=== PATIENT | male | born 1975 | race Caucasian/White ===

== ENCOUNTER 2017-09-19 18:35 | Emergency (ER) | payer SELFPAY ==
[2017-09-19 19:21] VITALS: BP 130/84; PULSE 82; RESP 18; TEMP 97; O2SAT 98
--- NOTE | 2017-09-19 19:35 | RADRPT ---
EXAM DATE/TIME: 09/19/2017 19:15 [place] COMPARISON: No previous studies available for comparison. INDICATIONS : Right shoulder pain, from fall on street. MEDICAL HISTORY : None. SURGICAL HISTORY : None. ENCOUNTER: Initial ACUITY: 1 day PAIN SCORE: 0/10 LOCATION: Right shoulder FINDINGS: 4 views of the right shoulder reveal an acromioclavicular separation. The distal clavicle is cephalad relative to the articulation with the acromion. There is widening of the coracoclavicular distance w hich measures 4 cm. No discrete fracture observed. CONCLUSION: 1. Acromio clavicular separation. Baltazar Johnston Jr., MD on September 19, 2017 at 19:32 Board Certified Radiologist. This report was verified electronically.
[2017-09-19] MEDS ORDERED: IBUPROFEN 600 MG TAB PO ONE (19:45)
[2017-09-19] MEDS ORDERED: IBUP-232 PO (19:47)
--- NOTE | 2017-09-19 19:47 | PD ---
HPI Chief Complaint: Injury Time Seen by Provider: 19:15 Travel History International Travel<30 days: No Contact w/Intl Traveler<30days: No Traveled to known affect area: No History of Present Illness HPI 42-year-old male complains of unsteady gait and right shoulder pain. Patient states that he had 2 beers this afternoon. Patient states that he started walking and feeling unsteady gait. Patient states that he fell and injured his right shoulder. Patient states that he did not hit his head. Patient denies loss of consciousness. Patient denies any headache. Patient denies any visual change. Patient denies any facial pain or neck pain. Patient denies any chest pain or shortness of breath. Patient denies abdominal pain. Patient denies any focal weakness or numbness of the extremity. Patient denies any history of TIA or CVA. Patient denies any illicit drug abuse. Patient states that he has been eating well. PFSH Past Medical History Medical History: Denies Significant Hx Immunizations Current: Yes Past Surgical History Surgical History: No Previous Surgery Social History Alcohol Use: Yes Tobacco Use: Yes Substance Use: No Allergies-Medications (Allergen,Severity, Reaction): Coded Allergies: No Known Allergies (Unverified , 09/19/17) Review of Systems General / Constitutional: No: Fever Eyes: No: Visual changes HENT: No: Headaches Cardiovascular: No: Chest Pain or Discomfort Respiratory: No: Shortness of Breath Gastrointestinal: No: Abdominal Pain Genitourinary: No: Dysuria Musculoskeletal: Positive: Pain Skin: No Rash Neurologic: No: Weakness Psychiatric: No: Depression Endocrine: No: Polydipsia Hematologic/Lymphatic: No: Easy Bruising Physical Exam Narrative GENERAL: Well-nourished, well-developed patient. SKIN: Focused skin assessment warm/dry. HEAD: Normocephalic. EYES: No scleral icterus. No injection or drainage. Pupils 2 mm equal reactive. TM: Clear. NECK: Supple, trachea midline. No JVD or lymphadenopathy. No meningismus. CARDIOVASCULAR: Regular rate and rhythm without murmurs, gallops, or rubs. RESPIRATORY: Breath sounds equal bilaterally. No accessory muscle use. GASTROINTESTINAL: Abdomen soft, non-tender, nondistended. MUSCULOSKELETAL: No cyanosis, or edema. Patient has mild tenderness on palpation right before meals joint. Obvious deformity noted. No skin break noted. BACK: Nontender without obvious deformity. No CVA tenderness. Neurologic exam: Patient's awake and alert oriented 3. No obvious focal neurological deficit. Patient can ambulate without any problem. Data Data Last Documented VS Vital Signs Date Time Temp Pulse Resp B/P (MAP) Pulse Ox O2 Delivery O2 Flow Rate FiO2 09/19/17 19:21 97.0 82 18 130/84 (99) 98 Orders Orders Shoulder, Complete (>2vws) (09/19/17 ) Splint Or Brace Apply/Monitor (09/19/17 19:32) Ibuprofen (Motrin) (09/19/17 19:45) MDM Medical Decision Making Medical Screen Exam Complete: Yes Emergency Medical Condition: Yes Differential Diagnosis Differential diagnosis including AC separation, fracture clavicle, fracture humerus, shoulder dislocation. Narrative Course 42-year-old male with transient unsteady gait and subsequently fall with right shoulder injury. X-ray shows complete AC separation right shoulder. Patient refused blood test, CT of the brain. Patient will be given a sling to right arm and and ibuprofen for pain. Mandatory referral for orthopedist initiated. Diagnosis Primary Impression: Separation of right acromioclavicular joint Qualified Codes: S43.101A - Unspecified dislocation of right acromioclavicular joint, initial encounter Patient Instructions: General Instructions Additional Instructions: Take ibuprofen as needed for pain. Follow-up with orthopedist. Mandatory referral for orthopedic initiated. Med/Other Pt SpecificInfo: Prescription(s) given Scripts Ibuprofen (Ibuprofen) 600 Mg Tab 600 MG PO TID for Pain, #60 TAB 0 Refills Prov: Temo Vargas MD 09/19/17 Disposition: 01 DISCHARGE HOME Condition: Stable Temo Vargas MD Sep 19, 2017 19:47
== END 2017-09-19 20:00 | disposition home or self-care (01) ==
LOC: NEPD 18:35
DX: S43.101A Unspecified dislocation of right acromioclavicular joint, initial encounter (principal); Z72.0 Tobacco use; W19.XXXA Unspecified fall, initial encounter
CPT/HCPCS: 73030; 99283